=== PATIENT | female | born 1995 | race Caucasian/White ===

== ENCOUNTER 2017-02-19 22:47 | Emergency (ER) | payer BC ==
[~2017-02-19] VITALS: Ht 172.7 cm; Wt 63.5 kg
[2017-02-19 22:52] VITALS: Ht 172.7 cm; Wt 63.5 kg
--- NOTE | 2017-02-19 23:22 | ERA ---
ER Documentation Chief Complaint Date/Time DATE: 02/19/17 TIME: 23:21 Chief Complaint depress/suicidal HPI The patient is a 21-year-old female, presenting to the ER because she was kicked out of the house by her mother 3 days ago, complains of depressed and suicidal. She plans to jump off the bridge to kill herself. She denies auditory, visual hallucination, homicidal ideation. He denies headache, neck pain, chest pain, dyspnea, abdominal pain, vomiting, dysuria, diarrhea, constipation. She smokes a pack a day, drinks socially, does crystal meth Past medical/surgical history: None ROS All systems reviewed and are negative except as per history of present illness. Allergies Allergies: Coded Allergies: No Known Drug Allergies (Verified Allergy, Unknown, 02/19/17) Physical Exam Vitals Vital Signs Date Time Temp Pulse Resp B/P Pulse Ox O2 Delivery O2 Flow Rate FiO2 02/19/17 22:52 99.1 103 20 152/72 98 Physical Exam Const: No acute distress. Head: Atraumatic. Eyes: Normal Conjunctiva. ENT: Normal External Ears, Nose and Mouth. Neck: Full range of motion. No meningismus. Resp: Clear to auscultation bilaterally. Cardio: Regular tachycardic Abd: Soft, non distended, normal bowel sounds, non tender. Skin: No petechiae or rashes. Back: No midline or flank tenderness. Ext: No cyanosis, or edema. Neur: Awake and alert. No focal deficit Psych: Normal Mood and Affect. Procedures/MDM MEDICAL MAKING DECISION: The patient is a 21-year-old female, presenting with acute suicidal ideation. The differential diagnoses considered include but are not limited to drug- induced psychosis, psychosis, depression, stress, substance abuse, anxiety attack, panic attack, situational stress Departure Diagnosis: Primary Impression: Suicidal ideation Additional Impression: Substance abuse Condition: Stable Comments Labs are pending She is awaiting for telepsychiatrist evaluation The patient's blood pressure was elevated (>120/80) but appears stable without evidence of hypertension emergency or urgency. The patient was counseled about the risks of hypertension and urged to pursue outpatient monitoring and therapy within a week with their primary care physician. ROSALIA GONZALES MD Feb 19, 2017 23:22
[2017-02-19 23:45] LABS: ADD SCAN DIFF NO
[2017-02-19 23:47] LABS: BASOPHIL # 0.1 10^3/ul (0.0-0.1); BASOPHILS % 0.5 % (0.0-2.0); EOSINOPHILS # 0.1 10^3/ul (0.0-0.5); EOSINOPHILS % 0.9 % (0.0-7.0); HEMATOCRIT 41.3 % (37.0-47.0); HEMOGLOBIN 13.4 g/dl (12.0-16.0); LYMPHOCYTES # 2.7 10^3/ul (0.8-2.9); LYMPHOCYTES % 29.7 % (18.0-55.0); MEAN CORPUSCULAR HEMOGLOBIN 29.6 pg (29.0-33.0); MEAN CORPUSCULAR HGB CONC 32.4 g/dl (32.0-37.0); MEAN CORPUSCULAR VOLUME 91.2 fl (72.0-104.0); MONOCYTE # 0.7 10^3/ul (0.3-0.9); MONOCYTES % 7.3 % (0.0-13.0); NEUTROPHIL # 5.7 10^3/ul (1.6-7.5); NEUTROPHILS % 61.3 % (30.0-74.0); PLATELET COUNT 322 10^3/UL (140-415); RED BLOOD COUNT 4.53 10^6/ul (4.20-5.40); RED CELL DISTRIBUTION WIDTH 13.3 % (11.5-14.5); WHITE BLOOD COUNT 9.2 10^3/ul (4.8-10.8)
[2017-02-19] MEDS ORDERED: CYAN500T46 PO (23:53)
[2017-02-19 23:55] LABS: ADD UMIC YES; UR ASCORBIC ACID NEGATIVE (NEGATIVE); UR BACTERIA FEW /HPF (NONE SEEN); UR BILIRUBIN (Dip) NEGATIVE (NEGATIVE); UR BLOOD (Dip) 3+ mg/dL (NEGATIVE); UR CLARITY CLEAR (CLEAR); UR COLOR YELLOW (YELLOW); UR GLUCOSE (Dip) NEGATIVE (NEGATIVE); UR KETONES (Dip) NEGATIVE (NEGATIVE); UR LEUKOCYTE ESTERASE (Dip) NEGATIVE Leu/ul (NEGATIVE); UR NITRITE (Dip) NEGATIVE (NEGATIVE); UR RBC 1 /HPF (0-5); UR SPECIFIC GRAVITY (Dip) 1.008 (1.003-1.030); UR SQUAMOUS EPITHELIAL CELL FEW /HPF (FEW); UR TOTAL PROTEIN (Dip) NEGATIVE (NEGATIVE); UR UROBILINOGEN (Dip) NEGATIVE (NEGATIVE)
[2017-02-20 00:10] LABS: BARBITURATES Negative (NEGATIVE); BENZODIAZEPINES Negative (NEGATIVE); CANNABINOIDS Positive (NEGATIVE); COCAINE Negative (NEGATIVE); OPIATES Negative (NEGATIVE)
[2017-02-20 00:13] LABS: ALANINE AMINOTRANSFERASE 25 IU/L (13-69); ALBUMIN 5.3 g/dl (3.3-4.9); ALBUMIN/GLOBULIN RATIO 1.55; ALKALINE PHOSPHATASE 45 IU/L (42-121); ANION GAP 17 (8-16); ASPARTATE AMINO TRANSFERASE 33 IU/L (15-46); BILIRUBIN,INDIRECT 0.5 mg/dl (0-1.1); BILIRUBIN,TOTAL 0.5 mg/dl (0.2-1.3); BLOOD UREA NITROGEN 13 mg/dl (7-20); CARBON DIOXIDE 26 mmol/L (21-31); CHLORIDE 105 mmol/L (97-110); CREATININE 0.56 mg/dl (0.44-1.00); GLUCOSE 98 mg/dl (70-220); POTASSIUM 3.4 mmol/L (3.5-5.1); SODIUM 145 mmol/L (135-144); TOTAL PROTEIN 8.7 g/dl (6.1-8.1)
--- NOTE | 2017-02-20 00:24 | PSY ---
Date/Time of Note Date/Time of Note DATE: 02/20/17 TIME: 00:06 Psychiatric Subjective Eval Consent Pt consented to telemedicine: Yes Subjective Evaluation Patient location: emergency Chief Complaint: states got kicked out of the house 2 days ago, now feeling depress/suicidal Reason for consult: S/I History of present illness patient is a 21 yo female homeless for 3 days with PPH of depression , anxiety and amphetamine abuse for the past 5 years , she came to the ER due to feeling suicidal , she states that she wants to jump off a bridge because her mother kicked her out of her house due to coming drunk and high of meth too often, she states that she does meth because it helps her depression and she has been feeling depressed since she was little but she wants to stop using because it makes her psychotic, she has no will to live anymore, cant sleep, has been walking around in the street for the past 2 days. no friend or family to go to cause people she knows do drug too. no HI. no past psych tx or suicidal attempt. she is anxious most of the time. Past psychiatric history none Hospitalization: no Family History denies Medical history Problems Medical Problems: (1) Substance abuse Status: Acute (2) Suicidal ideation Status: Acute Allergies: Coded Allergies: No Known Drug Allergies (Verified Allergy, Unknown, 02/19/17) Substance Abuse Substance abuse history: Yes (alcohol crystal methamphetamine ) Prior substance abuse treatmen: No Social History Marital status: single Level of education: hs DPA/Conservatorship: No Occupation/Assisted: UNEMPLOYED Psychiatric Objective Eval Review of Systems: Review of Systems: Not Applicable Physical Examination: Physical Examination: Applicable Sleep: Insomnia Appetite: Decreased Energy: Decreased Interest: Decreased Mental Status Examination: Appearance: Disheveled Eye Contact: Good Psychomotor Activity: Normal Behavior: Cooperative Speech: Clear AFFECT: Depressed Mood: Depressed Though Process: Linear Suicidal: Yes Homicidal: No On 72 hour hold: No Orientation: x3 Cognition: Alert Insight: Impared Judgement: Impared Attention Span: Intact Laboratory Results Laboratory Tests Test 02/19/17 23:30 White Blood Count 9.210^3/ul Red Blood Count 4.5310^6/ul Hemoglobin 13.4g/dl Hematocrit 41.3% Mean Corpuscular Volume 91.2fl Mean Corpuscular Hemoglobin 29.6pg Mean Corpuscular Hemoglobin Concent 32.4g/dl Red Cell Distribution Width 13.3% Platelet Count 37979^3/UL Mean Platelet Volume 10.0fl Neutrophils % 61.3% Lymphocytes % 29.7% Monocytes % 7.3% Eosinophils % 0.9% Basophils % 0.5% Nucleated Red Blood Cells % 0.0/100WBC Neutrophils # 5.710^3/ul Lymphocytes # 2.710^3/ul Monocytes # 0.710^3/ul Eosinophils # 0.110^3/ul Basophils # 0.110^3/ul Nucleated Red Blood Cells # 0.010^3/ul Urine Color YELLOW Urine Clarity CLEAR Urine pH 5.0 Urine Specific Kerrick 1.008 Urine Ketones NEGATIVEmg/dL Urine Nitrite NEGATIVEmg/dL Urine Bilirubin NEGATIVEmg/dL Urine Urobilinogen NEGATIVEmg/dL Urine Leukocyte Esterase NEGATIVELeu/ul Urine Microscopic RBC 1/HPF Urine Microscopic WBC 1/HPF Urine Squamous Epithelial Cells FEW/HPF Urine Bacteria FEW/HPF Urine Hemoglobin 3+mg/dL Urine Glucose NEGATIVEmg/dL Urine Total Protein NEGATIVEmg/dl Assessment and Plan Assessment/Diagnosis Hershey I: 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 severe self-destructive behavior. Intense feelings of hopelessness and/or lack of future orientation. Substance ABUSE in conjunction with another psychiatric disorder. Significant recent DETERIORATION in function, behavior and thought processes 9819 Recommendation: ALE Blevins MD Feb 20, 2017 00:20
[2017-02-20 00:29] LABS: ACETAMINOPHEN < 10.0 ug/ml (10.0-30.0); ETHANOL < 10.0 mg/dl; SALICYLATE < 1.0 mg/dl (5.0-30.0)
[2017-02-20] MEDS ORDERED: POTASSIUM CHLORIDE (SR) 20 MEQ TAB PO ONE (00:43)
[2017-02-20] MEDS ORDERED: LORAZEPAM 1 MG TAB PO ONE (01:00)
[2017-02-20 08:58] VITALS: BP 114/59; PULSE 59; RESP 16; TEMP 97.8
== END 2017-02-20 12:15 ==
LOC: E/R 22:47
DX: R45.851 Suicidal ideations (principal); F19.10 Other psychoactive substance abuse, uncomplicated
CPT/HCPCS: 36415; 80053; 80306; 80307; 81001; 84703; 85025; 99285

== ENCOUNTER 2017-03-27 08:10 | Emergency (ER) | payer BC, MEDICAID ==
[~2017-03-27] VITALS: Wt 71.0 kg
[~2017-03-27 08:10] MED LIST: CYAN500T46 PO
[2017-03-27] MEDS ORDERED: BEN25 PO (08:35)
[2017-03-27] MEDS ORDERED: RANI150T9 PO (08:35)
[2017-03-27] MEDS ORDERED: PRED20TA PO (08:35)
--- NOTE | 2017-03-27 08:43 | ERD ---
ER Documentation Chief Complaint Date/Time DATE: 03/27/17 TIME: 08:40 Chief Complaint RASH TO UNDER LEGS HPI 22-year-old female presents with a pruritic rash that started on her arms is on her trunk since yesterday. She describes as itchy, slightly burning, both of her bilateral posterior thighs as well as her chest and arms. She has not had any focal food allergies are known drug allergies prior, she denies any new foods, medications or lotions or creams. Patient reports that she donated plasma 2 days ago. She denies putting new lotions or any products on the back of her legs. There is no associated shortness of breath, chest pain. ROS All systems reviewed and are negative except as per history of present illness. Medications Home Meds Active Scripts Ranitidine Hcl* (Zantac*) 150 Mg Tablet, 150 MG PO BID Y for rash, #10 TAB Prov:RIO STINSON PA-C 03/27/17 Prednisone* (Prednisone*) 20 Mg Tab, 40 MG PO DAILY for 5 Days, TAB Prov:RIO STINSON PA-C 03/27/17 Diphenhydramine Hcl* (Benadryl*) 25 Mg Cap, 25 MG PO Q6, #30 CAP Prov:RIO STINSON PA-C 03/27/17 Reported Medications Cyanocobalamin* (Vitamin B12*) 500 Mcg Tab, 500 MCG PO DAILY, TAB 02/19/17 Allergies Allergies: Coded Allergies: No Known Drug Allergies (Verified Allergy, Unknown, 02/19/17) PMhx/Soc Medical and Surgical Hx: pt denies Medical Hx, pt denies Surgical Hx Hx Alcohol Use: Yes Hx Substance Use: Yes (METH, MARIJUANA) Hx Tobacco Use: Yes Smoking Status: Current every day smoker Physical Exam Vitals Vital Signs Date Time Temp Pulse Resp B/P Pulse Ox O2 Delivery O2 Flow Rate FiO2 03/27/17 08:12 98.0 78 18 121/71 99 Physical Exam General: Well-developed, well-nourished. The patient appears in no acute distress. HEENT: Head is normocephalic, atraumatic. No scleral icterus. Oropharynx is clear, there is no angioedema Neck: Supple. Nontender. Lungs: Clear to auscultation. Normal air movement. Heart: Regular rate and rhythm. S1 and S2 are normal. No murmurs, gallops, or rubs. Abdomen: Soft, nontender, nondistended. Bowel sounds are normoactive. Extremities: No clubbing or cyanosis. Moving extremities 4 Neurologic: Alert and oriented 3. No focal deficits. Skin: Erythematous rashes, better blotchy, circular, blanchable on the bilateral posterior thighs, also on the neck and arms. No vesicles, there is no central clearing, no induration. Procedures/MDM 22-year-old female presents with rashes to her thighs as well as her arms. Patient presents with mild allergy, will be treated with Benadryl, steroids as well as ranitidine. Patient's allergic symptoms have stabilized while they have been evaluated in the department without evidence of persistent systemic reaction. Patient is healthy and capable of treating and responding to rebound reactions. Patient appropriate for outpatient allergy work up and treatment. Departure Diagnosis: Primary Impression: Rash Condition: Good Patient Instructions: Allergic Reaction, Other (General) Additional Instructions: Call your primary care doctor TOMORROW for an appointment during the next 1-2 days.See the doctor sooner or return here if your condition worsens before your appointment time. RIO STINSON PA-C Mar 27, 2017 08:43
== END 2017-03-27 08:48 | disposition home or self-care (01) ==
LOC: FTE 08:10
DX: R21 Rash and other nonspecific skin eruption (principal); F17.210 Nicotine dependence, cigarettes, uncomplicated
CPT/HCPCS: 99283

== ENCOUNTER 2019-03-17 13:53 | Emergency (ER) | payer BC, MEDICAID ==
[~2019-03-17] VITALS: Ht 175.3 cm; Wt 75.0 kg
[~2019-03-17 13:53] MED LIST changes: +BEN25 PO; +PRED20TA PO; +RANI150T35 PO
[2019-03-17 13:55] VITALS: Ht 175.3 cm; Wt 75.0 kg
[2019-03-17] MEDS ORDERED: IBUPROFEN 600 MG TAB PO ONE (15:00)
[2019-03-17] MEDS ORDERED: IBUP-1542 PO (16:09)
--- NOTE | 2019-03-17 16:20 | ERD ---
ER Documentation Chief Complaint Chief Complaint left hand pain/injury HPI Patient is a 23-year-old female, no past medical history, presents to the ER for concerns of left hand pain which started prior to arrival. Patient states she was running when she hit her left hand on the door frame. Patient has swelling to the dorsum of the hand. Patient is right-hand dominant. She denies any previous fractures or dislocations. Patient states she took Tylenol prior to arrival. ROS All systems reviewed and are negative except as per history of present illness. Medications Home Meds Active Scripts Ibuprofen* (Motrin*) 600 Mg Tab, 600 MG PO Q6, #30 TAB Prov:CAROLANN MAYS PA-C 03/17/19 Ranitidine Hcl* (Zantac*) 150 Mg Tablet, 150 MG PO BID PRN for rash, #10 TAB Prov:RIO STINSON PA-C 03/27/17 Prednisone* (Prednisone*) 20 Mg Tab, 40 MG PO DAILY for 5 Days, TAB Prov:RIO STINSON PA-C 03/27/17 Diphenhydramine Hcl* (Benadryl*) 25 Mg Cap, 25 MG PO Q6, #30 CAP Prov:RIO STINSON PA-C 03/27/17 Reported Medications Cyanocobalamin* (Vitamin B12*) 500 Mcg Tab, 500 MCG PO DAILY, TAB 02/19/17 Allergies Allergies: Coded Allergies: No Known Drug Allergies (Verified Allergy, Unknown, 02/19/17) PMhx/Soc Medical and Surgical Hx: pt denies Medical Hx, pt denies Surgical Hx Hx Alcohol Use: Yes Hx Substance Use: Yes (METH, MARIJUANA) Hx Tobacco Use: Yes Smoking Status: Current every day smoker FmHx Family History: No diabetes Physical Exam Vitals Vital Signs Date Temp Pulse Resp B/P (MAP) Pulse Ox O2 O2 Flow FiO2 Time Delivery Rate 03/17/19 98.2 74 24 123/75 100 13:55 (91) Physical Exam GENERAL: Well-developed, well-nourished female. Appears in no acute distress. HEAD: Normocephalic, atraumatic. NECK: Supple. No meningismus. Normal range of motion of the neck. LUNG: No respiratory distress NEUROLOGIC: Alert and oriented. Moving all four extremities without any difficulty. Normal speech. Steady gait. SKIN: Normal color. Warm and dry. No rashes or lesions. LE: No deformity, erythema, ecchymosis or swelling. Skin intact. Full ROM. No crepitus. Non-tender to palpation. No joint line tenderness. (-) Anterior drawer test. (-) Urban test. No valgus/varus instability. Sensation intact to light touch. Neurovascularly intact. (Able to plantarflex, dorsiflex, marti foot, invert foot, raise big toe.) 2+ DP and DT pulses. Results 24 hrs Current Medications Medications Dose Sig/Melissa Start Time Status Last (Trade) Ordered Route PRN Stop Time Admin Dose Reason Admin Ibuprofen 600 mg ONCE ONCE 03/17/19 DC 03/17/19 (Motrin) PO 15:00 14:53 03/17/19 15:01 Procedures/MDM ED COURSE: The patient was stable throughout ED course. I kept the patient and/or family informed of laboratory and diagnostic imaging results throughout the ED course. DIAGNOSTIC IMAGING: Read by radiologist. DIAGNOSTIC IMAGING REPORT Patient: MUNA DWYER : 1995 Age: 23 Sex: F MR #: [id number] DOS: 03/17/19 1430 Ordering MD: CAROLANN MAYS PA-C Location: [facility] Room/Bed: PROCEDURE: Left hand x-ray CLINICAL INDICATION: pain TECHNIQUE: AP, lateral and oblique views of the left hand were obtained. COMPARISON: None FINDINGS: There is a comminuted markedly displaced fracture of the third metacarpal with associated soft tissue swelling. There is normal mineralization. There are no significant degenerative changes. RPTAT: AA IMPRESSION: Comminuted markedly displaced fracture of the third metacarpal with associated soft tissue swelling. .Carlos Tsang MD, Date Time Electronically viewed and signed by .Carlos Tsang MD, on 03/17/2019 15:00 .S/ CC: CAROLANN MAYS PA-C [phone] PROCEDURES: SPLINT APPLICATION: The patient was verbally consented at bedside prior to splint application. Patient was explained the risks, benefits and alternatives to this procedure. The patient was neurovascularly intact prior to and status post application of the splint. The patient tolerated the procedure well with no complications. Splint type: boxer splint Extremity: left hand Indication: Comminuted markedly displaced fracture of the third metacarpal with associated soft tissue swelling. MEDICAL DECISION MAKING: This is a 23-year-old female, presents the ER for concern of the left hand pain after hitting it against a metal door frame. Vital signs were reviewed. Patient was afebrile. XR showed Comminuted markedly displaced fracture of the third metacarpal with associated soft tissue swelling. X-ray imaging was reviewed with supervising physician Dr. Tilley, who agreed that reduction was not indicated at this time. She was placed in a boxer splint. Patient advised to remain in splint until seen and cleared by medical reimbursement specialist. Low suspicion for compartment syndrome. Unable to rule any ligament or tendon injuries at this time. PRESCRIPTIONS: Ibuprofen DISCHARGE: At this time, patient is stable for discharge and outpatient management. I have instructed the patient to follow-up with his/her primary care physician in 1-2 days. I have discussed with the patient the possibility of needing to see an medical reimbursement specialist for further workup and imaging if the pain persists. I have instructed the patient to promptly return to the ER for any new or worsening symptoms including increased pain, swelling, redness, warmth or fever. The patient and/or family expressed understanding of and agreement with this plan. All questions were answered. Home care instructions were provided. Disclaimer: Inadvertent spelling and grammatical errors are likely due to EHR/dictation software use and do not reflect on the overall quality of patient care. Also, please note that the electronic time recorded on this note does not necessarily reflect the actual time of the patient encounter. Departure Diagnosis: Primary Impression: Metacarpal bone fracture Encounter type: initial encounter Metacarpal bone: third Fracture type: closed Metacarpal location: unspecified portion of metacarpal Fracture alignment: nondisplaced Laterality: left Qualified Codes: S62.303A - Unspecified fracture of third metacarpal bone, left hand, initial encounter for closed fracture Condition: Fair Patient Instructions: Fracture, Boxer's Referrals: [facility] YOU HAVE RECEIVED A MEDICAL SCREENING EXAM AND THE RESULTS INDICATE THAT YOU DO NOT HAVE A CONDITION THAT REQUIRES URGENT TREATMENT IN THE EMERGENCY DEPARTMENT. FURTHER EVALUATION AND TREATMENT OF YOUR CONDITION CAN WAIT UNTIL YOU ARE SEEN IN YOUR DOCTORS OFFICE WITHIN THE NEXT 1-2 DAYS. IT IS YOUR RESPONSIBILITY TO MAKE AN APPOINTMENT FOR FOLOW-UP CARE. IF YOU HAVE A PRIMARY DOCTOR --you should call your primary doctor and schedule an appointment IF YOU DO NOT HAVE A PRIMARY DOCTOR YOU CAN CALL OUR PHYSICIAN REFERRAL HOTLINE AT IF YOU CAN NOT AFFORD TO SEE A PHYSICIAN YOU CAN CHOSE FROM THE FOLLOWING [facility] [address] [facility] [address] [facility] [address] [facility] [address] [facility] [address] [facility]. [facility] [address] [facility]. [facility] YOU HAVE RECEIVED A MEDICAL SCREENING EXAM AND THE RESULTS INDICATE THAT YOU DO NOT HAVE A CONDITION THAT REQUIRES URGENT TREATMENT IN THE EMERGENCY DEPARTMENT. FURTHER EVALUATION AND TREATMENT OF YOUR CONDITION CAN WAIT UNTIL YOU ARE SEEN IN YOUR DOCTORS OFFICE WITHIN THE NEXT 1-2 DAYS. IT IS YOUR RESPONSIBILITY TO MAKE AN APPOINTMENT FOR FOLOW-UP CARE. IF YOU HAVE A PRIMARY DOCTOR --you should call your primary doctor and schedule and appointment IF YOU DO NOT HAVE A PRIMARY DOCTOR YOU CAN CALL OUR PHYSICIAN REFERRAL HOTLINE AT . IF YOU CAN NOT AFFORD TO SEE A PHYSICIAN YOU CAN CHOSE FROM THE FOLLOWING [facility] INSTITUTIONS: [facility] [address] [place] [address] [facility] [address] [place] [address] [facility] [address] [place] [address] [facility] Additional Instructions: Remain in splint until seen and cleared by medical reimbursement specialist. Call your primary care doctor TOMORROW for an appointment during the next 1-2 days.See the doctor sooner or return here if your condition worsens before your appointment time. CAROLANN MAYS PA-C Mar 17, 2019 16:20
[2019-03-17 16:30] VITALS: BP 120/66; PULSE 69; RESP 20
== END 2019-03-17 16:30 | disposition home or self-care (01) ==
LOC: FTE 13:53
DX: S62.303A Unspecified fracture of third metacarpal bone, left hand, initial encounter for closed fracture (principal); F17.210 Nicotine dependence, cigarettes, uncomplicated; W22.03XA Walked into furniture, initial encounter; Y92.9 Unspecified place or not applicable

== ENCOUNTER 2019-06-22 18:13 | Emergency (ER) | payer BC ==
[~2019-06-22] VITALS: Ht 175.3 cm; Wt 75.9 kg
[~2019-06-22 18:13] MED LIST changes: -CYAN500T46 PO; +CYAN500T55 PO; +HYDR-842 PO; +IBUP-1542 PO; +RANI-535 PO; -RANI150T35 PO
[2019-06-22 18:45] VITALS: BP 145/83; PULSE 71; RESP 20; Ht 175.3 cm; Wt 75.9 kg
[2019-06-22] MEDS ORDERED: IBUPROFEN 600 MG TAB PO ONE (19:30)
== END 2019-06-22 21:29 | disposition home or self-care (01) ==
LOC: FTE 18:13
DX: S60.221A Contusion of right hand, initial encounter (principal); F17.210 Nicotine dependence, cigarettes, uncomplicated; F41.9 Anxiety disorder, unspecified; S20.211A Contusion of right front wall of thorax, initial encounter; S90.31XA Contusion of right foot, initial encounter; V03.10XA Pedestrian on foot injured in collision with car, pick-up truck or van in traffic accident, initial encounter
CPT/HCPCS: 71100; 73630; 81025